=== PATIENT | female | born 1980 | race Hispanic/Latino ===

== ENCOUNTER 2020-08-15 19:38 | Emergency (ER) | payer OTHER ==
[~2020-08-15] VITALS: Ht 157.5 cm; Wt 77.1 kg
[~2020-08-15 19:38] MED LIST: CLONAZEPAM1 MG PO; LEXAPRO20 MG PO; NAPROSYN500 MG PO; NORCO 10-325 T1 EACH
[2020-08-15] MEDS ORDERED: PROMETHAZINE HCL (IM) 25 MG/ML VIAL IM ONE ×2 (20:00→20:11)
[2020-08-15] MEDS ORDERED: ALBUTEROL/IPRATROPIUM 3 ML NEB NEB ONE (20:00)
[2020-08-15] MEDS ORDERED: MORPHINE SULFATE INJ 4 MG/ML INJ 1ML IM ONE (20:00)
[2020-08-15] MEDS ORDERED: MORPHINE SULFATE INJ 4 MG/ML INJ 1ML ONE ×2 (20:11→20:14)
[2020-08-15] MEDS ORDERED: ALBUTEROL/IPRATROPIUM 3 ML NEB ONE (20:12)
[2020-08-15] MEDS ORDERED: TESSALON PERLE100 MG PO (21:04)
[2020-08-15] MEDS ORDERED: AZITHROMYCIN250 MG PO (21:04)
[2020-08-16] MEDS ORDERED: DEXAMETHASONE SOD PHOS INJ 4 MG/ML VIAL ONE (22:17)
[2020-08-16] MEDS ORDERED: DIPHENHYDRAMINE HCL INJ 50 MG/ML VIAL ONE (22:17)
[2020-08-16] MEDS ORDERED: KETOROLAC TROMETHAMINE 30 MG/ML VIAL ONE (22:17)
[2020-08-16] MEDS ORDERED: PROMETHAZINE HCL (IM) 25 MG/ML VIAL IM ONE (22:18)
== END 2020-08-15 21:30 | disposition home or self-care (01) ==
LOC: FSED 20:00 → MERGE 20:00 → FSED 21:30
DX: G43.901 Migraine, unspecified, not intractable, with status migrainosus (principal); J20.9 Acute bronchitis, unspecified; R05 Cough; F41.9 Anxiety disorder, unspecified; Z98.84 Bariatric surgery status
CPT/HCPCS: 70450; 71045; 99283; J2270; J2550; J1100; J1200; J1885

== ENCOUNTER 2020-08-16 21:24 | Emergency (ER) | payer OTHER ==
[~2020-08-16] VITALS: Ht 157.5 cm; Wt 77.1 kg
[~2020-08-16 21:24] MED LIST changes: +AZITHROMYCIN250 MG PO; +TESSALON PERLE100 MG PO
[2020-08-16] MEDS ORDERED: DIPHENHYDRAMINE HCL INJ 50 MG/ML VIAL IV ONE (22:00)
[2020-08-16] MEDS ORDERED: DEXAMETHASONE SOD PHOS INJ 4 MG/ML VIAL IV ONE (22:00)
[2020-08-16] MEDS ORDERED: PROMETHAZINE HCL (IM) 25 MG/ML VIAL IM ONE (22:00)
[2020-08-16] MEDS ORDERED: KETOROLAC TROMETHAMINE 30 MG/ML VIAL IV STA (22:02)
[2020-08-16] MEDS ORDERED: SODIUM CHLORIDE 0.9% 1000ML 1,000 ML ONE (22:20)
== END 2020-08-17 00:40 | disposition home or self-care (01) ==
LOC: MERGE 21:57 → FSED 21:57
DX: G43.901 Migraine, unspecified, not intractable, with status migrainosus (principal); F41.9 Anxiety disorder, unspecified; Z98.84 Bariatric surgery status
CPT/HCPCS: 99283; J7030

== ENCOUNTER 2022-03-31 22:50 | Emergency (ER) | payer OTHER ==
[~2022-03-31] VITALS: Ht 157.5 cm; Wt 77.1 kg
[2022-03-31] MEDS ORDERED: SODIUM CHLORIDE 0.9% 1000ML 1,000 ML IV STA (23:16)
[2022-03-31] MEDS ORDERED: ZANAFLEX4 MG PO (23:26)
[2022-03-31] MEDS ORDERED: IBUPROFEN200 MG PO (23:26)
[2022-03-31] MEDS ORDERED: ONDANSETRON HCL INJ 2MG/ML 2ML 2 MG/ML VIAL IV ONE (23:30)
[2022-03-31] MEDS ORDERED: KETOROLAC TROMETHAMINE 30 MG/ML VIAL IV ONE (23:30)
[2022-03-31] MEDS ORDERED: DIPHENHYDRAMINE HCL INJ 50 MG/ML VIAL IV ONE (23:30)
[2022-03-31] MEDS ORDERED: DIPHENHYDRAMINE HCL INJ 50 MG/ML VIAL ONE (23:36)
[2022-03-31] MEDS ORDERED: KETOROLAC TROMETHAMINE 30 MG/ML VIAL ONE (23:36)
[2022-03-31] MEDS ORDERED: SODIUM CHLORIDE 0.9% 1000ML 1,000 ML ONE (23:36)
[2022-03-31] MEDS ORDERED: ONDANSETRON HCL INJ 2MG/ML 2ML 2 MG/ML VIAL ONE (23:36)
== END 2022-04-01 00:38 | disposition home or self-care (01) ==
LOC: FSED 23:07
DX: R07.89 Other chest pain (principal); M54.2 Cervicalgia; M47.892 Other spondylosis, cervical region; R51.9 Headache, unspecified; I10 Essential (primary) hypertension; F41.9 Anxiety disorder, unspecified; Z98.84 Bariatric surgery status; R94.31 Abnormal electrocardiogram [ECG] [EKG]
CPT/HCPCS: 71046; 72040; 80053; 81003; 85025; 85379; 93005; 99284; J1200; J1885; J2405; J7030

== ENCOUNTER 2022-04-26 12:48 | Emergency (ER) | payer OTHER ==
[~2022-04-26] VITALS: Ht 154.9 cm; Wt 73.6 kg
[~2022-04-26 12:48] MED LIST changes: +IBUPROFEN200 MG PO; +ZANAFLEX4 MG PO
[2022-04-26] MEDS ORDERED: METHOCARBAMOL500 MG PO (13:34)
[2022-04-26] MEDS ORDERED: NAPROSYN500 MG PO (13:34)
[2022-04-26] MEDS ORDERED: ATENOLOL50 MG PO (13:36)
[2022-04-26] MEDS ORDERED: NEURONTIN300 MG PO (13:36)
[2022-04-26] MEDS ORDERED: KETOROLAC TROMETHAMINE 60 MG/2 ML VIAL IM ONE (13:45)
== END 2022-04-26 14:02 | disposition home or self-care (01) ==
LOC: FSED 12:49
DX: M54.2 Cervicalgia (principal); M62.838 Other muscle spasm; I10 Essential (primary) hypertension; F41.9 Anxiety disorder, unspecified; Z98.84 Bariatric surgery status
CPT/HCPCS: 96372; 99283; J1885